=== PATIENT | male | born 1940 | race Caucasian/White ===

== ENCOUNTER → 2020-03-16 | Outpatient (CLI) | payer MEDICARE ==
[~2020-03-16] MED LIST: ASPI-496 PO; CYAN1TAB6 PO; EVOL140P3 INJ; FEXO60TA24 PO; ICOS1CAP PO; LEVO0.5P; LEVO50TA5 PO; METF850T10 PO; N-Acetyl-L-Cysteine PO; PRAS1TAB3 PO; ROSU20TA2 PO; TEST100V2 IM; TEST100V2 INJ; Vitamin B-12 SQ; [UNRECOGNIZED DRUG - OTHER] PO; [UNRECOGNIZED DRUG - OTHER] PO; [UNRECOGNIZED DRUG - OTHER] PO; [UNRECOGNIZED DRUG - OTHER] PO; [UNRECOGNIZED DRUG - OTHER] PO; [UNRECOGNIZED DRUG - OTHER] PO; [UNRECOGNIZED DRUG - OTHER] PO; [UNRECOGNIZED DRUG - OTHER] PO; [UNRECOGNIZED DRUG - OTHER] PO; [UNRECOGNIZED DRUG - OTHER] PO; [UNRECOGNIZED DRUG - REMARK] PO; curcumin PO; policosanol PO; vitamin b12 SC
[2020-03-16 15:17] LABS: ALBUMIN 3.2 g/dL (3.4-5.0); ANION GAP 5 mmol/L (5-15); CALCIUM 8.7 mg/dL (8.5-10.1); CHLORIDE 106 mmol/L (98-107)
[2020-03-16 15:21] LABS: ALANINE AMINOTRANSFERASE 30 U/L (12-78); ALKALINE PHOSPHATASE 63 U/L (45-117); BILIRUBIN,TOTAL 0.4 mg/dL (0.2-1.0); CREATININE 1.26 mg/dL (0.7-1.3); TOTAL PROTEIN 8.2 g/dL (6.4-8.2)
== END | disposition home or self-care (01) ==
LOC: STAR 13:31
PROVIDERS: ATTEND Internal Medicine
DX: Z01.818 Encounter for other preprocedural examination (principal); I51.7 Cardiomegaly; I45.10 Unspecified right bundle-branch block; I44.4 Left anterior fascicular block; D12.6 Benign neoplasm of colon, unspecified
CPT/HCPCS: 36415; 80053; 93005; U0001-CS

== ENCOUNTER 2020-03-21 05:44 | Day surgery (SDC) | payer MEDICARE ==
[2020-03-16 14:26] VITALS: BP 149/78
[~2020-03-21] VITALS: Ht 182.9 cm; Wt 97.5 kg
[2020-03-21] MEDS ORDERED: LACTATED RINGERS 1,000 ML IV SCH (06:40)
[2020-03-21 06:42] VITALS: BP 149/78
[2020-03-21] MEDS ORDERED: CHLORHEXIDINE 15 ML UDC MM ONE (07:00)
[2020-03-21] MEDS ORDERED: PROPOFOL 10 MG/ML, 20ML ONE ×2 (07:47→08:17)
[2020-03-21] MEDS ORDERED: LIDOCAINE-MPF 2% ,5ML ONE (07:48)
== END 2020-03-21 10:10 | disposition home or self-care (01) ==
LOC: OUT 05:44
PROVIDERS: ATTEND Internal Medicine
DX: D12.2 Benign neoplasm of ascending colon (principal); D12.0 Benign neoplasm of cecum; G47.33 Obstructive sleep apnea (adult) (pediatric); Z79.84 Long term (current) use of oral hypoglycemic drugs; Z79.890 Hormone replacement therapy; Z79.899 Other long term (current) drug therapy
CPT/HCPCS: 45380; 45381; 45385; 82962; 88305; A4648; J2704; J7120